=== PATIENT | female | born 1930 | race Caucasian/White ===

== ENCOUNTER → 2017-02-21 | Outpatient (CLI) | payer BC, MEDICARE ==
[2014-07-02 12:31] VITALS: BP 145/70
--- NOTE | 2017-02-21 11:46 | KCIC ---
Bone mineral density exam History: Osteoporosis, hysterectomy Comparison: None Findings: Bone mineral density examination utilizing DEXA was performed. Left hip bone mineral density of -2.3 g/cm2 corresponds with a T score -2.3, Z score 0.0. The bone mineral density of the lumbar spine was 1.027 g/cm2 which corresponds with a T-score of -0.2, Z score 2.7. By [employer] on Osteoporosis criteria, a T score of 0 to-1 SD is considered to be within normal limits. A T score of -1 to -2.5 SD is considered osteopenia. A T score less than -2.5 SD is considered osteoporosis Impression: 1. Bone mineral density of the lumbar spine is considered within normal limits although may be artificially elevated due to the presence of degenerative change, scoliosis also noted. There is osteopenia of the left hip. Electronically signed by: Gab Rodriguez MD (02/21/2017 11:43 AM) [email or web address]
== END ==
LOC: KCIC DEXA 08:58
PROVIDERS: ATTEND Physician Assistant Surgical
DX: M85.88 Other specified disorders of bone density and structure, other site (principal); M41.86 Other forms of scoliosis, lumbar region; M47.896 Other spondylosis, lumbar region; Z90.710 Acquired absence of both cervix and uterus
CPT/HCPCS: 77080